=== PATIENT | female | born 1955 | race Caucasian/White ===

== ENCOUNTER 2017-05-27 07:51 | Emergency (ER) | payer OTHER ==
[2017-05-27] MEDS: HYDROCODONE/APAP (5/325) TAB PO (09:22)
== END 2017-05-27 14:10 | disposition home or self-care (01) ==
LOC: FTE 07:51
DX: R52 Pain, unspecified (principal); E03.9 Hypothyroidism, unspecified; F17.210 Nicotine dependence, cigarettes, uncomplicated
CPT/HCPCS: 99283; Z7502

== ENCOUNTER 2017-05-27 14:12 | Emergency (ER) | payer SELFPAY, OTHER | END 2017-05-27 17:44 | disposition left against medical advice (07) | LOC: E/R 17:44 | DX: Z53.21 Procedure and treatment not carried out due to patient leaving prior to being seen by health care provider (principal) ==

== ENCOUNTER 2017-05-29 02:04 | Emergency (ER) | payer OTHER ==
[2017-05-29] MEDS: ACETAMINOPHEN 500 MG TAB PO (06:23)
== END 2017-05-29 06:40 | disposition home or self-care (01) ==
LOC: FTE 02:04
DX: R52 Pain, unspecified (principal); E03.9 Hypothyroidism, unspecified; F17.210 Nicotine dependence, cigarettes, uncomplicated
CPT/HCPCS: 99283; Z7502

== ENCOUNTER 2017-08-30 19:00 | Emergency (ER) | payer OTHER ==
[2017-08-30] MEDS: KETOROLAC 30 MG INJ IM (19:19)
== END 2017-08-30 22:29 | disposition home or self-care (01) ==
LOC: E/R 19:00
DX: M25.551 Pain in right hip (principal); E03.9 Hypothyroidism, unspecified; F17.210 Nicotine dependence, cigarettes, uncomplicated
CPT/HCPCS: 73510; 96372; 99284-25

== ENCOUNTER 2017-09-05 22:54 | Emergency (ER) | payer OTHER | END 2017-09-06 02:43 | disposition home or self-care (01) | LOC: E/R 22:54 | DX: T74.21XA Adult sexual abuse, confirmed, initial encounter (principal); F17.210 Nicotine dependence, cigarettes, uncomplicated; E03.9 Hypothyroidism, unspecified | CPT/HCPCS: 99282; Z7502 ==

== ENCOUNTER 2017-09-14 17:57 | Emergency (ER) | payer OTHER ==
[2017-09-14 18:54] LABS: CANNABINOIDS Positive (NEGATIVE)
[2017-09-14 18:55] LABS: BARBITURATES Negative (NEGATIVE); BENZODIAZEPINES Negative (NEGATIVE); COCAINE Negative (NEGATIVE); OPIATES Negative (NEGATIVE)
[2017-09-14 19:12] LABS: AMPHETAMINE/METHAMPHETAMINE Positive (NEGATIVE)
== END 2017-09-15 08:15 | disposition home or self-care (01) ==
LOC: E/R 09-15 08:15
DX: R45.851 Suicidal ideations (principal); E03.9 Hypothyroidism, unspecified; Z76.5 Malingerer [conscious simulation]; Z87.891 Personal history of nicotine dependence
CPT/HCPCS: 80307; 99283

== ENCOUNTER 2017-12-13 14:57 | Emergency (ER) | payer SELFPAY, OTHER | END 2017-12-13 19:30 | disposition left against medical advice (07) | LOC: E/R 14:57 | DX: Z53.21 Procedure and treatment not carried out due to patient leaving prior to being seen by health care provider (principal) ==

== ENCOUNTER 2017-12-17 15:28 | Emergency (ER) | payer OTHER | END 2017-12-17 16:26 | disposition left against medical advice (07) | LOC: E/R 15:28 | DX: M79.605 Pain in left leg (principal); Z53.20 Procedure and treatment not carried out because of patient's decision for unspecified reasons | CPT/HCPCS: 99282 ==

== ENCOUNTER 2017-12-18 03:20 | Emergency (ER) | payer OTHER ==
[2017-12-18 05:08] LABS: ADD UMIC YES; UR ASCORBIC ACID NEGATIVE (NEGATIVE); UR BACTERIA FEW /HPF (NONE SEEN); UR BILIRUBIN (Dip) NEGATIVE (NEGATIVE); UR BLOOD (Dip) 3+ mg/dL (NEGATIVE); UR CALCIUM OXALATE CRYSTAL FEW /HPF (NONE SEEN); UR CLARITY CLOUDY (CLEAR); UR COLOR AMBER (YELLOW); UR GLUCOSE (Dip) NEGATIVE (NEGATIVE); UR KETONES (Dip) NEGATIVE (NEGATIVE); UR LEUKOCYTE ESTERASE (Dip) 2+ Leu/ul (NEGATIVE); UR MUCUS MANY /HPF (NONE SEEN); UR NITRITE (Dip) NEGATIVE (NEGATIVE); UR RBC > 182 /HPF (0-5); UR SPECIFIC GRAVITY (Dip) 1.027 (1.003-1.030); UR SQUAMOUS EPITHELIAL CELL FEW /HPF (FEW); UR TOTAL PROTEIN (Dip) 2+ mg/dl (NEGATIVE); UR UROBILINOGEN (Dip) 2+ mg/dL (NEGATIVE); UR WBC > 182 /HPF (0-5)
[2017-12-18 06:16] LABS: AMPHETAMINE/METHAMPHETAMINE Negative (NEGATIVE); BARBITURATES Negative (NEGATIVE); BENZODIAZEPINES Negative (NEGATIVE); CANNABINOIDS Negative (NEGATIVE); COCAINE Negative (NEGATIVE); OPIATES Negative (NEGATIVE)
== END 2017-12-18 09:45 | disposition home or self-care (01) ==
LOC: E/R 03:20
DX: R45.851 Suicidal ideations (principal); E03.9 Hypothyroidism, unspecified; F17.210 Nicotine dependence, cigarettes, uncomplicated
CPT/HCPCS: 80307; 81001; 99285

== ENCOUNTER 2018-02-04 21:54 | Emergency (ER) | payer OTHER | END 2018-02-05 02:37 | disposition home or self-care (01) | LOC: E/R 21:54 | DX: F39 Unspecified mood [affective] disorder (principal); E03.9 Hypothyroidism, unspecified; Z87.891 Personal history of nicotine dependence | CPT/HCPCS: 99282; Z7502 ==

== ENCOUNTER 2018-02-05 03:33 | Emergency (ER) | payer OTHER ==
[2018-02-05 04:04] LABS: ADD MAN DIFF? NO
[2018-02-05 04:07] LABS: WHITE BLOOD COUNT 4.7 10^3/ul (4.8-10.8)
[2018-02-05 04:07] LABS: BASOPHILS % 0.4 % (0.0-2.0); EOSINOPHILS % 0.2 % (0.0-7.0); HEMOGLOBIN 13.4 g/dl (12.0-16.0); LYMPHOCYTES # 1.2 10^3/ul (0.8-2.9); LYMPHOCYTES % 25.5 % (15.0-51.0); MEAN CORPUSCULAR HEMOGLOBIN 30.9 pg (29.0-33.0); MEAN CORPUSCULAR HGB CONC 33.5 g/dl (32.0-37.0); MEAN CORPUSCULAR VOLUME 92.4 fl (82.0-101.0); MEAN PLATELET VOLUME 11.1 fl (7.4-10.4); MONOCYTE # 0.6 10^3/ul (0.3-0.9); MONOCYTES % 12.9 % (0.0-11.0); NEUTROPHIL # 2.9 10^3/ul (1.6-7.5); NEUTROPHILS % 60.4 % (39.0-77.0); PLATELET COUNT 138 10^3/UL (140-415); RED BLOOD COUNT 4.33 10^6/ul (4.20-5.40); RED CELL DISTRIBUTION WIDTH 13.9 % (11.5-14.5)
[2018-02-05 04:12] LABS: POSITIVE DIFF @See below
[2018-02-05 04:26] LABS: ALBUMIN 4.1 g/dl (3.3-4.9); ALBUMIN/GLOBULIN RATIO 0.91; ALKALINE PHOSPHATASE 265 IU/L (42-121); ANION GAP 12 (8-16); ASPARTATE AMINO TRANSFERASE 117 IU/L (15-46); BILIRUBIN,INDIRECT 0.2 mg/dl (0-1.1); BILIRUBIN,TOTAL 0.2 mg/dl (0.2-1.3); BLOOD UREA NITROGEN 24 mg/dl (7-20); CALCIUM 9.1 mg/dl (8.4-10.2); CARBON DIOXIDE 25 mmol/L (21-31); CHLORIDE 113 mmol/L (97-110); GLUCOSE 95 mg/dl (70-220); POTASSIUM 3.9 mmol/L (3.5-5.1); SODIUM 146 mmol/L (135-144); TOTAL PROTEIN 8.6 g/dl (6.1-8.1)
[2018-02-05 04:28] LABS: ETHANOL < 10.0 mg/dl; SALICYLATE < 1.0 mg/dl (5.0-30.0)
[2018-02-05 04:29] LABS: ACETAMINOPHEN < 10.0 ug/ml (10.0-30.0)
[2018-02-05 04:36] LABS: ALANINE AMINOTRANSFERASE 85 IU/L (13-69)
== END 2018-02-05 09:08 ==
LOC: E/R 03:33
DX: R45.851 Suicidal ideations (principal); R40.2252 Coma scale, best verbal response, oriented, at arrival to emergency department; R40.2362 Coma scale, best motor response, obeys commands, at arrival to emergency department; E03.9 Hypothyroidism, unspecified; F17.210 Nicotine dependence, cigarettes, uncomplicated
CPT/HCPCS: 36415; 80053; 80307; 85025; 99285